=== PATIENT | female | born 1940 | race Caucasian/White ===

== ENCOUNTER 2016-12-08 17:27 | Inpatient (IN) | payer OTHER ==
[~2016-12-08] VITALS: Ht 157.5 cm; Wt 43.5 kg
[2016-12-08] MEDS ORDERED: IV NS 0.9% 1,000 ML ONE ×2 (17:56→21:16)
[2016-12-08] MEDS ORDERED: IV SET PRIMARY PUMP SET 1 EA INFUS.SET MC ONE ×4 (17:56→21:16)
[2016-12-08] MEDS ORDERED: CEFTRIAXONE 1GM BAG (ER ONLY) 50 ML IV ONE ×2 (17:56→18:00)
[2016-12-08] MEDS ORDERED: IV NS 0.9% 1,000 ML BAG IV ONE (18:00)
[2016-12-08] MEDS ORDERED: AZITHROMYCIN 500 MG in IV D5W 250 ML IV ONE (18:00)
[2016-12-08] MEDS ORDERED: PERI1TAB PO (18:05)
[2016-12-08] MEDS ORDERED: IV NS 0.9% 500 ML IV ONE (18:14)
[2016-12-08 18:34] LABS: BASOPHILS % (AUTO) 0.2 % (0.0-2.0); DIFF TOTAL % 100 %; HEMATOCRIT 48 % (33-45); HEMOGLOBIN 15.3 g/dL (11.5-14.8); LYMPHOCYTES # (AUTO) 0.7 /CMM (0.8-4.8); LYMPHOCYTES % (AUTO) 7.3 % (20.0-44.0); MEAN CORPUSCULAR HEMOGLOBIN 29 PG (26.0-33.0); MEAN CORPUSCULAR HGB CONC 32 g/dl (31.0-36.0); MEAN CORPUSCULAR VOLUME 91 fL (82-100); MONOCYTES # (AUTO) 0.7 /CMM (0.1-1.30); MONOCYTES % (AUTO) 7.1 % (2.0-12.0); NEUTROPHILS # (AUTO) 7.9 /CMM (1.8-8.9); NEUTROPHILS % (AUTO) 85.4 % (43.0-81.0); PLATELET COUNT (AUTO) 253 /CMM (150-450); RED BLOOD CELL COUNT(AUTO) 5.29 MIL/uL (4.0-5.2); WHITE BLOOD COUNT (AUTO) 9.3 K/uL (4.3-11.0)
[2016-12-08 18:37] LABS: ALANINE AMINOTRANSFERASE 22 U/L (12-78); ALBUMIN 2.9 g/dL (3.4-5.0); ANION GAP 4 (5-14); ASPARTATE AMINOTRANSFERASE 16 U/L (15-37); BILIRUBIN,DIRECT 0.1 mg/dL (0.0-0.2); BILIRUBIN,TOTAL 0.4 mg/dL (0.2-1.0); CALCIUM, SERUM 8.5 mg/dL (8.5-10.1); CARBON DIOXIDE 38 mmol/L (21-32); CHLORIDE 103 mmol/L (98-107); CREATININE 0.7 mg/dL (0.6-1.3); GLUCOSE 162 mg/dL (74-106); INDIRECT BILIRUBIN 0.3 mg/dL (0.0-1.1); POTASSIUM 3.7 mmol/L (3.5-5.1); SODIUM SERUM 141 mmol/L (136-145); TOTAL PROTEIN, SERUM 6.6 g/dL (6.4-8.2); UREA NITROGEN, BLOOD 22 mg/dL (7-18)
[2016-12-08 18:38] LABS: TROPONIN I < 0.017 ng/mL (0.00-0.056)
[2016-12-08] MEDS ORDERED: Z GUARD REMEDY 2 OZ OINT TP PRN (19:30)
[2016-12-08] MEDS ORDERED: ENOXAPARIN SODIUM 40 MG/0.4 ML DISP.SYRIN SQ SCH (19:30)
[2016-12-08] MEDS ORDERED: ALBUTEROL FS 2.5 MG/0.5 ML VIAL.NEB NEB PRN (19:30)
[2016-12-08] MEDS ORDERED: CEFTRIAXONE 1 G in IV D5W 50 ML IV SCH (19:30)
[2016-12-08] MEDS ORDERED: HYDROCODONE/APAP 5/325MG 1 EACH TABLET PO PRN (19:30)
[2016-12-08 20:00] VITALS: BP 121/63
[2016-12-08] MEDS ORDERED: ONDANSETRON HCL/PF 4 MG/2 ML VIAL IVP PRN (20:00)
[2016-12-08] MEDS ORDERED: MAGNESIUM HYDROXIDE 30 ML UDC PO PRN (20:00)
[2016-12-08] MEDS ORDERED: ACETAMINOPHEN 325 MG TABLET PO PRN (20:00)
[2016-12-08] MEDS ORDERED: LORAZEPAM 1 MG TABLET PO PRN (20:00)
[2016-12-08] MEDS ORDERED: MAG HYDROX/AL HYDROX/SIMETH 30 ML UDC PO PRN (20:00)
[2016-12-08 21:00] VITALS: BP 121/63
[2016-12-08] MEDS ORDERED: ENOXAPARIN SODIUM 40 MG/0.4 ML DISP.SYRIN SQ ONE (21:15)
[2016-12-08] MEDS ORDERED: methylPREDNISolone SOD SUCC 125 MG/2ML VIAL ONE (21:16)
[2016-12-08] MEDS: methylPREDNISolone SOD SUCC 125 MG/2ML VIAL IV SCH (21:27)
[2016-12-08] MEDS: IV NS 0.9% 1,000 ML IV PRN (21:28)
[2016-12-08] MEDS ORDERED: ALBUTEROL FS 2.5 MG/3 ML VIAL.NEB ONE (21:59)
[2016-12-08] MEDS ORDERED: ZOLPIDEM TARTRATE 5 MG TABLET PO PRN (22:00)
[2016-12-08] MEDS ORDERED: IPRATROPIUM NEB FS 0.5 MG/2.5 ML AMPUL.NEB ONE (22:00)
[2016-12-08] MEDS ORDERED: ALBUTEROL FS 2.5 MG/0.5 ML VIAL.NEB ONE (22:00)
[2016-12-09] VITALS (36 sets, daily range): BP systolic 86–142; BP diastolic 48–81
[2016-12-09] MEDS ORDERED: hydrALAZINE HCL 10 MG TABLET PO PRN (01:30)
[2016-12-09] MEDS ORDERED: NICOTINE PATCH (21MG) 21 MG PATCH.TD24 TD ONE (01:35)
[2016-12-09] MEDS: NICOTINE PATCH (21MG) 21 MG PATCH.TD24 TD SCH ×2 (01:38→10:37)
[2016-12-09 02:45] LABS: ABG BASE EXCESS 4.5 mmol/L; ABG HCO3 35.2 mmol/L; ABG PCO2 82.8 mmHg (35.0-45.0); ABG PH 7.246 (7.350-7.450); ABG PO2 78.9 mmHg (75.0-100.0); ABG TOTAL HEMOGLOBIN 15.5 G/dL (12.0-16.0); ALLEN TEST Pass; AaDO2 81.7 mmHg; O2Hb 90.6 % (94.0-97.0)
[2016-12-09 04:58] LABS: DIFF TOTAL % 100 %; HEMATOCRIT 45 % (33-45); HEMOGLOBIN 14.4 g/dL (11.5-14.8); LYMPHOCYTES # (AUTO) 0.2 /CMM (0.8-4.8); MEAN CORPUSCULAR HEMOGLOBIN 29 PG (26.0-33.0); MEAN CORPUSCULAR HGB CONC 32 g/dl (31.0-36.0); MEAN CORPUSCULAR VOLUME 92 fL (82-100); MONOCYTES % (AUTO) 0.7 % (2.0-12.0); NEUTROPHILS # (AUTO) 4.7 /CMM (1.8-8.9); NEUTROPHILS % (AUTO) 95.3 % (43.0-81.0); PLATELET COUNT (AUTO) 226 /CMM (150-450); RED BLOOD CELL COUNT(AUTO) 4.89 MIL/uL (4.0-5.2); WHITE BLOOD COUNT (AUTO) 4.9 K/uL (4.3-11.0)
[2016-12-09 05:03] LABS: CALCIUM, SERUM 7.9 mg/dL (8.5-10.1); CREATININE 0.6 mg/dL (0.6-1.3); PHOSPHORUS 4.1 mg/dL (2.5-4.9); POTASSIUM 4.3 mmol/L (3.5-5.1)
[2016-12-09 05:08] LABS: ABG BASE EXCESS 6.5 mmol/L; ABG HCO3 36.3 mmol/L; ABG PCO2 78.4 mmHg (35.0-45.0); ABG PH 7.283 (7.350-7.450); ABG TOTAL HEMOGLOBIN 14.4 G/dL (12.0-16.0); ALLEN TEST Pass; AaDO2 196.3 mmHg; O2Hb 90.3 % (94.0-97.0)
[2016-12-09] MEDS ORDERED: ALBUTEROL FS 2.5 MG/0.5 ML VIAL.NEB NEB PRN (07:05)
[2016-12-09] MEDS ORDERED: AZITHROMYCIN 500 MG in IV D5W 250 ML IV SCH (09:00)
[2016-12-09] MEDS: IV NS 0.9% 1,000 ML IV PRN (10:36)
[2016-12-09] MEDS: methylPREDNISolone SOD SUCC 125 MG/2ML VIAL IV SCH ×4 (10:36→21:53)
[2016-12-09] MEDS: PANTOPRAZOLE 40 MG TABLET.DR PO SCH (10:37)
[2016-12-09] MEDS: FLUTICASONE/SALMETEROL DISKUS IH SCH ×2 (10:37→21:54)
[2016-12-09] MEDS ORDERED: SECONDARY IV SET 1 EA INFUS.SET MC ONE ×2 (11:23→17:29)
[2016-12-09] MEDS: Magnesium 1GM/D5W 100ML PREMIX 100 ML IV SCH ×2 (11:26→13:08)
[2016-12-09 16:20] LABS: ABG BASE EXCESS 7.6 mmol/L; ABG HCO3 35.3 mmol/L; ABG NOTIFIED BY AS RRT.; ABG PCO2 62.4 mmHg (35.0-45.0); ABG PO2 67.8 mmHg (75.0-100.0); ABG TOTAL HEMOGLOBIN 14.7 G/dL (12.0-16.0); AaDO2 145.6 mmHg; O2Hb 90.9 % (94.0-97.0)
[2016-12-09] MEDS: CEFTRIAXONE 1 G in IV D5W 50 ML IV SCH (17:07)
[2016-12-09] MEDS: AZITHROMYCIN 500 MG in IV D5W 250 ML IV SCH (17:35)
[2016-12-09] MEDS: ENOXAPARIN SODIUM 40 MG/0.4 ML DISP.SYRIN SQ SCH (21:50)
[2016-12-10] VITALS (27 sets, daily range): BP systolic 66–152; BP diastolic 20–78
[2016-12-10] MEDS: IV NS 0.9% 1,000 ML IV PRN ×2 (02:08→15:23)
[2016-12-10 04:45] LABS: DIFF TOTAL % 100 %; HEMATOCRIT 49 % (33-45); HEMOGLOBIN 15.5 g/dL (11.5-14.8); LYMPHOCYTES # (AUTO) 0.4 /CMM (0.8-4.8); MEAN CORPUSCULAR HEMOGLOBIN 29 PG (26.0-33.0); MEAN CORPUSCULAR HGB CONC 32 g/dl (31.0-36.0); MEAN CORPUSCULAR VOLUME 93 fL (82-100); MONOCYTES # (AUTO) 0.2 /CMM (0.1-1.30); MONOCYTES % (AUTO) 2.3 % (2.0-12.0); NEUTROPHILS # (AUTO) 7.1 /CMM (1.8-8.9); NEUTROPHILS % (AUTO) 92.7 % (43.0-81.0); PLATELET COUNT (AUTO) 275 /CMM (150-450); RED BLOOD CELL COUNT(AUTO) 5.28 MIL/uL (4.0-5.2); WHITE BLOOD COUNT (AUTO) 7.6 K/uL (4.3-11.0)
[2016-12-10 05:09] LABS: CALCIUM, SERUM 8.5 mg/dL (8.5-10.1); CREATININE 0.6 mg/dL (0.6-1.3); POTASSIUM 4.4 mmol/L (3.5-5.1)
[2016-12-10] MEDS: PANTOPRAZOLE 40 MG TABLET.DR PO SCH (07:55)
[2016-12-10] MEDS: NICOTINE PATCH (21MG) 21 MG PATCH.TD24 TD SCH (09:57)
[2016-12-10] MEDS: AMLODIPINE PO SCH (09:57)
[2016-12-10] MEDS: PERINDOPRIL PO SCH (09:57)
[2016-12-10] MEDS: FLUTICASONE/SALMETEROL DISKUS IH SCH (09:57)
[2016-12-10] MEDS: methylPREDNISolone SOD SUCC 125 MG/2ML VIAL IV SCH ×2 (09:59→20:16)
[2016-12-10] MEDS: ACETYLCYSTEINE 20% SOLN 800 MG/4 ML VIAL NEB SCH ×3 (12:30→23:30)
[2016-12-10 12:33] LABS: ABG BASE EXCESS 4.9 mmol/L; ABG HCO3 33.7 mmol/L; ABG NOTIFIED WHOM ED RN; ABG PCO2 67.6 mmHg (35.0-45.0); ABG PH 7.315 (7.350-7.450); ABG PO2 52.7 mmHg (75.0-100.0); ABG TOTAL HEMOGLOBIN 15.7 G/dL (12.0-16.0); ALLEN TEST Pass; AaDO2 125.6 mmHg; O2Hb 82.3 % (94.0-97.0)
[2016-12-10] MEDS: CEFTRIAXONE 1 G in IV D5W 50 ML IV SCH (17:06)
[2016-12-10] MEDS: LACTOBACILLUS RHAMNOSUS GG 1 EACH CAP.SPRINK PO SCH (17:06)
[2016-12-10] MEDS: AZITHROMYCIN 500 MG in IV D5W 250 ML IV SCH (17:07)
[2016-12-10] MEDS: IPRATROPIUM NEB FS 0.5 MG/2.5 ML AMPUL.NEB NEB SCH ×3 (17:30→23:30)
[2016-12-10] MEDS: ALBUTEROL FS 2.5 MG/0.5 ML VIAL.NEB NEB SCH ×2 (20:15→23:30)
[2016-12-10] MEDS: ENOXAPARIN SODIUM 40 MG/0.4 ML DISP.SYRIN SQ SCH (20:16)
[2016-12-11] VITALS (14 sets, daily range): BP systolic 120–158; BP diastolic 62–94
[2016-12-11] MEDS: IV NS 0.9% 1,000 ML IV PRN ×2 (02:34→17:03)
[2016-12-11] MEDS: IPRATROPIUM NEB FS 0.5 MG/2.5 ML AMPUL.NEB NEB SCH ×6 (03:30→23:28)
[2016-12-11] MEDS: ALBUTEROL FS 2.5 MG/0.5 ML VIAL.NEB NEB SCH ×6 (03:30→23:28)
[2016-12-11 04:55] LABS: DIFF TOTAL % 100 %; EOSINOPHILS % (AUTO) 0.1 % (0.0-6.0); HEMATOCRIT 42 % (33-45); HEMOGLOBIN 14.1 g/dL (11.5-14.8); LYMPHOCYTES # (AUTO) 0.8 /CMM (0.8-4.8); LYMPHOCYTES % (AUTO) 9.7 % (20.0-44.0); MEAN CORPUSCULAR HEMOGLOBIN 30 PG (26.0-33.0); MEAN CORPUSCULAR HGB CONC 34 g/dl (31.0-36.0); MEAN CORPUSCULAR VOLUME 89 fL (82-100); MONOCYTES # (AUTO) 0.4 /CMM (0.1-1.30); MONOCYTES % (AUTO) 4.3 % (2.0-12.0); NEUTROPHILS # (AUTO) 7.1 /CMM (1.8-8.9); NEUTROPHILS % (AUTO) 85.9 % (43.0-81.0); PLATELET COUNT (AUTO) 284 /CMM (150-450); WHITE BLOOD COUNT (AUTO) 8.3 K/uL (4.3-11.0)
[2016-12-11 05:34] LABS: CALCIUM, SERUM 8.1 mg/dL (8.5-10.1); CREATININE 0.5 mg/dL (0.6-1.3); PHOSPHORUS 3.5 mg/dL (2.5-4.9); POTASSIUM 4.3 mmol/L (3.5-5.1)
[2016-12-11] MEDS: methylPREDNISolone SOD SUCC 125 MG/2ML VIAL IV SCH ×3 (05:57→21:49)
[2016-12-11] MEDS: ACETYLCYSTEINE 20% SOLN 800 MG/4 ML VIAL NEB SCH ×3 (08:06→23:28)
[2016-12-11] MEDS: PANTOPRAZOLE 40 MG TABLET.DR PO SCH (08:18)
[2016-12-11] MEDS: NICOTINE PATCH (21MG) 21 MG PATCH.TD24 TD SCH (08:18)
[2016-12-11] MEDS: LACTOBACILLUS RHAMNOSUS GG 1 EACH CAP.SPRINK PO SCH ×2 (08:18→16:55)
[2016-12-11] MEDS: AMLODIPINE PO SCH (08:18)
[2016-12-11] MEDS: PERINDOPRIL PO SCH (08:18)
[2016-12-11] MEDS ORDERED: SECONDARY IV SET 1 EA INFUS.SET MC ONE (16:44)
[2016-12-11] MEDS: CEFTRIAXONE 1 G in IV D5W 50 ML IV SCH (16:55)
[2016-12-11] MEDS: AZITHROMYCIN 500 MG in IV D5W 250 ML IV SCH (17:42)
[2016-12-11] MEDS: ENOXAPARIN SODIUM 40 MG/0.4 ML DISP.SYRIN SQ SCH (21:58)
[2016-12-12] VITALS: BP 129/65
[2016-12-12] MEDS: IPRATROPIUM NEB FS 0.5 MG/2.5 ML AMPUL.NEB NEB SCH ×6 (03:28→23:15)
[2016-12-12] MEDS: ALBUTEROL FS 2.5 MG/0.5 ML VIAL.NEB NEB SCH ×6 (03:29→23:15)
[2016-12-12 04:00] VITALS: BP 146/70
[2016-12-12] MEDS: methylPREDNISolone SOD SUCC 125 MG/2ML VIAL IV SCH ×3 (06:07→21:09)
[2016-12-12] MEDS: IV NS 0.9% 1,000 ML IV PRN ×2 (06:07→21:09)
[2016-12-12 07:27] LABS: DIFF TOTAL % 100 %; HEMATOCRIT 44 % (33-45); HEMOGLOBIN 14.2 g/dL (11.5-14.8); LYMPHOCYTES # (AUTO) 0.2 /CMM (0.8-4.8); LYMPHOCYTES % (AUTO) 3.5 % (20.0-44.0); MEAN CORPUSCULAR HEMOGLOBIN 30 PG (26.0-33.0); MEAN CORPUSCULAR HGB CONC 32 g/dl (31.0-36.0); MEAN CORPUSCULAR VOLUME 92 fL (82-100); MONOCYTES # (AUTO) 0.2 /CMM (0.1-1.30); MONOCYTES % (AUTO) 3.1 % (2.0-12.0); NEUTROPHILS # (AUTO) 6.1 /CMM (1.8-8.9); NEUTROPHILS % (AUTO) 93.4 % (43.0-81.0); PLATELET COUNT (AUTO) 265 /CMM (150-450); RED BLOOD CELL COUNT(AUTO) 4.81 MIL/uL (4.0-5.2); WHITE BLOOD COUNT (AUTO) 6.5 K/uL (4.3-11.0)
[2016-12-12 08:00] VITALS: BP 157/73
[2016-12-12 08:10] LABS: CALCIUM, SERUM 8.1 mg/dL (8.5-10.1); CREATININE 0.4 mg/dL (0.6-1.3); POTASSIUM 4.1 mmol/L (3.5-5.1)
[2016-12-12] MEDS: ACETYLCYSTEINE 20% SOLN 800 MG/4 ML VIAL NEB SCH ×2 (08:12→23:15)
[2016-12-12] MEDS: PERINDOPRIL PO SCH (08:37)
[2016-12-12] MEDS: AMLODIPINE PO SCH (08:37)
[2016-12-12] MEDS: NICOTINE PATCH (21MG) 21 MG PATCH.TD24 TD SCH (08:37)
[2016-12-12] MEDS: PANTOPRAZOLE 40 MG TABLET.DR PO SCH (08:37)
[2016-12-12] MEDS: LACTOBACILLUS RHAMNOSUS GG 1 EACH CAP.SPRINK PO SCH ×2 (08:37→17:31)
[2016-12-12 12:00] VITALS: BP 148/76
[2016-12-12 16:00] VITALS: BP 132/74
[2016-12-12] MEDS: CEFTRIAXONE 1 G in IV D5W 50 ML IV SCH (17:31)
[2016-12-12] MEDS: AZITHROMYCIN 500 MG in IV D5W 250 ML IV SCH (18:20)
[2016-12-12 20:00] VITALS: BP 144/73
[2016-12-12] MEDS: ENOXAPARIN SODIUM 40 MG/0.4 ML DISP.SYRIN SQ SCH (21:09)
[2016-12-13] VITALS: BP 185/98
[2016-12-13 04:00] VITALS: BP 144/70
[2016-12-13] MEDS: IPRATROPIUM NEB FS 0.5 MG/2.5 ML AMPUL.NEB NEB SCH ×5 (04:19→19:06)
[2016-12-13] MEDS: ALBUTEROL FS 2.5 MG/0.5 ML VIAL.NEB NEB SCH ×5 (04:19→19:07)
[2016-12-13] MEDS: methylPREDNISolone SOD SUCC 125 MG/2ML VIAL IV SCH ×3 (05:18→20:45)
[2016-12-13] MEDS: ACETYLCYSTEINE 20% SOLN 800 MG/4 ML VIAL NEB SCH ×2 (07:41→15:47)
[2016-12-13 07:48] LABS: CALCIUM, SERUM 8.3 mg/dL (8.5-10.1); CREATININE 0.3 mg/dL (0.6-1.3)
[2016-12-13 08:00] VITALS: BP 156/74
[2016-12-13] MEDS: AMLODIPINE PO SCH (08:05)
[2016-12-13] MEDS: PERINDOPRIL PO SCH (08:05)
[2016-12-13] MEDS: PANTOPRAZOLE 40 MG TABLET.DR PO SCH (08:05)
[2016-12-13] MEDS: LACTOBACILLUS RHAMNOSUS GG 1 EACH CAP.SPRINK PO SCH ×2 (08:05→17:04)
[2016-12-13] MEDS: NICOTINE PATCH (21MG) 21 MG PATCH.TD24 TD SCH (08:05)
[2016-12-13 12:00] VITALS: BP 153/80
[2016-12-13 16:00] VITALS: BP 151/81
[2016-12-13] MEDS: CEFTRIAXONE 1 G in IV D5W 50 ML IV SCH (17:04)
[2016-12-13] MEDS: AZITHROMYCIN 250 MG TABLET PO SCH (17:04)
[2016-12-13 17:19] LABS: ABG BASE EXCESS 14.3 mmol/L; ABG HCO3 43.1 mmol/L; ABG PCO2 70.8 mmHg (35.0-45.0); ABG PH 7.402 (7.350-7.450); ABG PO2 66.7 mmHg (75.0-100.0); ABG TOTAL HEMOGLOBIN 15.8 G/dL (12.0-16.0); ALLEN TEST Pass; AaDO2 137.1 mmHg; O2Hb 91.8 % (94.0-97.0)
[2016-12-13 20:00] VITALS: BP 153/79
[2016-12-13] MEDS: ENOXAPARIN SODIUM 40 MG/0.4 ML DISP.SYRIN SQ SCH (20:46)
[2016-12-14] VITALS (7 sets, daily range): BP systolic 108–160; BP diastolic 68–97
[2016-12-14] MEDS: ACETYLCYSTEINE 20% SOLN 800 MG/4 ML VIAL NEB SCH ×4 (00:11→23:39)
[2016-12-14] MEDS: ALBUTEROL FS 2.5 MG/0.5 ML VIAL.NEB NEB SCH ×7 (00:11→23:39)
[2016-12-14] MEDS: IPRATROPIUM NEB FS 0.5 MG/2.5 ML AMPUL.NEB NEB SCH ×7 (00:12→23:39)
[2016-12-14] MEDS: methylPREDNISolone SOD SUCC 125 MG/2ML VIAL IV SCH ×3 (04:57→20:43)
[2016-12-14 07:45] LABS: CALCIUM, SERUM 8.5 mg/dL (8.5-10.1); CREATININE 0.4 mg/dL (0.6-1.3); POTASSIUM 4.1 mmol/L (3.5-5.1)
[2016-12-14] MEDS: LACTOBACILLUS RHAMNOSUS GG 1 EACH CAP.SPRINK PO SCH ×2 (09:54→18:29)
[2016-12-14] MEDS: AMLODIPINE PO SCH (09:55)
[2016-12-14] MEDS: PANTOPRAZOLE 40 MG TABLET.DR PO SCH (09:55)
[2016-12-14] MEDS: PERINDOPRIL PO SCH (09:55)
[2016-12-14] MEDS: NICOTINE PATCH (21MG) 21 MG PATCH.TD24 TD SCH (09:55)
[2016-12-14] MEDS: acetaZOLAMIDE SODIUM 500 MG/VIAL VIAL IV SCH ×2 (10:46→20:43)
[2016-12-14] MEDS: CEFTRIAXONE 1 G in IV D5W 50 ML IV SCH (18:29)
[2016-12-14] MEDS: AZITHROMYCIN 250 MG TABLET PO SCH (18:29)
[2016-12-14] MEDS: ENOXAPARIN SODIUM 40 MG/0.4 ML DISP.SYRIN SQ SCH (20:44)
[2016-12-15] VITALS: BP 138/74
[2016-12-15] MEDS: ALBUTEROL FS 2.5 MG/0.5 ML VIAL.NEB NEB SCH ×6 (03:30→23:55)
[2016-12-15] MEDS: IPRATROPIUM NEB FS 0.5 MG/2.5 ML AMPUL.NEB NEB SCH ×6 (03:30→23:55)
[2016-12-15 04:00] VITALS: BP 124/78
[2016-12-15] MEDS: methylPREDNISolone SOD SUCC 125 MG/2ML VIAL IV SCH ×3 (04:51→21:22)
[2016-12-15] MEDS: ACETYLCYSTEINE 20% SOLN 800 MG/4 ML VIAL NEB SCH ×3 (07:30→23:55)
[2016-12-15 08:00] VITALS: BP 132/75
[2016-12-15 08:01] LABS: CREATININE 0.6 mg/dL (0.6-1.3); POTASSIUM 3.7 mmol/L (3.5-5.1)
[2016-12-15] MEDS: PANTOPRAZOLE 40 MG TABLET.DR PO SCH (08:26)
[2016-12-15] MEDS: LACTOBACILLUS RHAMNOSUS GG 1 EACH CAP.SPRINK PO SCH ×2 (08:26→17:09)
[2016-12-15] MEDS: NICOTINE PATCH (21MG) 21 MG PATCH.TD24 TD SCH (08:26)
[2016-12-15] MEDS: PERINDOPRIL PO SCH (08:31)
[2016-12-15] MEDS: AMLODIPINE PO SCH (08:31)
[2016-12-15] MEDS: acetaZOLAMIDE SODIUM 500 MG/VIAL VIAL IV SCH (09:16)
[2016-12-15 12:00] VITALS: BP 131/70
[2016-12-15 13:27] LABS: ABG BASE EXCESS 10.9 mmol/L; ABG HCO3 38.2 mmol/L; ABG PCO2 58.6 mmHg (35.0-45.0); ABG PH 7.432 (7.350-7.450); ABG PO2 46.7 mmHg (75.0-100.0); ABG TOTAL HEMOGLOBIN 17.5 G/dL (12.0-16.0); ALLEN TEST Pass; AaDO2 112.9 mmHg
[2016-12-15 16:00] VITALS: BP 160/90
[2016-12-15] MEDS: AZITHROMYCIN 250 MG TABLET PO SCH (17:10)
[2016-12-15] MEDS: CEFTRIAXONE 1 G in IV D5W 50 ML IV SCH (17:10)
[2016-12-15 20:00] VITALS: BP_SYST 122; BP_SYST 136; BP_DIAS 73; BP_DIAS 77
[2016-12-15] MEDS: ENOXAPARIN SODIUM 40 MG/0.4 ML DISP.SYRIN SQ SCH (20:37)
[2016-12-16] VITALS: BP_SYST 129; BP_SYST 141; BP_DIAS 73; BP_DIAS 76
[2016-12-16] MEDS: IPRATROPIUM NEB FS 0.5 MG/2.5 ML AMPUL.NEB NEB SCH ×6 (03:12→23:16)
[2016-12-16] MEDS: ALBUTEROL FS 2.5 MG/0.5 ML VIAL.NEB NEB SCH ×6 (03:13→23:16)
[2016-12-16 04:00] VITALS: BP_SYST 141; BP_DIAS 74; BP_DIAS 79
[2016-12-16] MEDS: methylPREDNISolone SOD SUCC 125 MG/2ML VIAL IV SCH ×3 (04:48→21:17)
[2016-12-16 08:00] VITALS: BP 147/95
[2016-12-16] MEDS: NICOTINE PATCH (21MG) 21 MG PATCH.TD24 TD SCH (08:07)
[2016-12-16] MEDS: PERINDOPRIL PO SCH (08:08)
[2016-12-16] MEDS: LACTOBACILLUS RHAMNOSUS GG 1 EACH CAP.SPRINK PO SCH ×2 (08:08→16:35)
[2016-12-16] MEDS: AMLODIPINE PO SCH (08:08)
[2016-12-16] MEDS: PANTOPRAZOLE 40 MG TABLET.DR PO SCH (08:15)
[2016-12-16] MEDS: ACETYLCYSTEINE 20% SOLN 800 MG/4 ML VIAL NEB SCH ×3 (08:44→23:16)
[2016-12-16 16:00] VITALS: BP 137/75
[2016-12-16] MEDS: CEFTRIAXONE 1 G in IV D5W 50 ML IV SCH (16:59)
[2016-12-16] MEDS: AZITHROMYCIN 250 MG TABLET PO SCH (18:10)
[2016-12-16 20:00] VITALS: BP 136/70
[2016-12-16] MEDS: ENOXAPARIN SODIUM 40 MG/0.4 ML DISP.SYRIN SQ SCH (21:19)
[2016-12-17] MEDS: ALBUTEROL FS 2.5 MG/0.5 ML VIAL.NEB NEB SCH ×6 (03:15→22:56)
[2016-12-17] MEDS: IPRATROPIUM NEB FS 0.5 MG/2.5 ML AMPUL.NEB NEB SCH ×6 (03:15→22:55)
[2016-12-17 04:00] VITALS: BP 140/65
[2016-12-17] MEDS: methylPREDNISolone SOD SUCC 125 MG/2ML VIAL IV SCH ×3 (04:16→21:57)
[2016-12-17 06:52] LABS: BASOPHILS % (AUTO) 0.1 % (0.0-2.0); DIFF TOTAL % 100 %; EOSINOPHILS % (AUTO) 0.6 % (0.0-6.0); HEMATOCRIT 53 % (33-45); HEMOGLOBIN 17.3 g/dL (11.5-14.8); LYMPHOCYTES # (AUTO) 0.2 /CMM (0.8-4.8); LYMPHOCYTES % (AUTO) 2.6 % (20.0-44.0); MEAN CORPUSCULAR HEMOGLOBIN 30 PG (26.0-33.0); MEAN CORPUSCULAR HGB CONC 33 g/dl (31.0-36.0); MEAN CORPUSCULAR VOLUME 91 fL (82-100); MONOCYTES # (AUTO) 0.1 /CMM (0.1-1.30); MONOCYTES % (AUTO) 2.4 % (2.0-12.0); NEUTROPHILS # (AUTO) 5.7 /CMM (1.8-8.9); NEUTROPHILS % (AUTO) 94.3 % (43.0-81.0); PLATELET COUNT (AUTO) 241 /CMM (150-450); RED BLOOD CELL COUNT(AUTO) 5.85 MIL/uL (4.0-5.2); WHITE BLOOD COUNT (AUTO) 6.1 K/uL (4.3-11.0)
[2016-12-17] MEDS: PANTOPRAZOLE 40 MG TABLET.DR PO SCH (06:56)
[2016-12-17 07:09] LABS: CALCIUM, SERUM 8.7 mg/dL (8.5-10.1); CREATININE 0.6 mg/dL (0.6-1.3)
[2016-12-17] MEDS: ACETYLCYSTEINE 20% SOLN 800 MG/4 ML VIAL NEB SCH ×3 (07:22→22:56)
[2016-12-17 08:00] VITALS: BP 165/88
[2016-12-17] MEDS: LACTOBACILLUS RHAMNOSUS GG 1 EACH CAP.SPRINK PO SCH ×2 (08:32→18:26)
[2016-12-17] MEDS: PERINDOPRIL PO SCH (08:32)
[2016-12-17] MEDS: AMLODIPINE PO SCH (08:32)
[2016-12-17] MEDS: NICOTINE PATCH (21MG) 21 MG PATCH.TD24 TD SCH (08:33)
[2016-12-17 09:28] LABS: ABG BASE EXCESS 8.5 mmol/L; ABG HCO3 35.5 mmol/L; ABG PCO2 56.3 mmHg (35.0-45.0); ABG PH 7.418 (7.350-7.450); ABG PO2 52.3 mmHg (75.0-100.0); ABG TOTAL HEMOGLOBIN 17.7 G/dL (12.0-16.0); ALLEN TEST Pass; O2Hb 84.9 % (94.0-97.0)
[2016-12-17 16:00] VITALS: BP 144/74
[2016-12-17] MEDS ORDERED: NICO1PAT28 TD (17:13)
[2016-12-17] MEDS ORDERED: FLUT1DIS5 INH (17:13)
[2016-12-17] MEDS ORDERED: ALBU2.5V13 NEB (17:13)
[2016-12-17] MEDS ORDERED: PRED20TA PO (17:13)
[2016-12-17] MEDS ORDERED: Ipratropium Bromide NEB (17:13)
[2016-12-17] MEDS: CEFTRIAXONE 1 G in IV D5W 50 ML IV SCH (18:26)
[2016-12-17] MEDS: AZITHROMYCIN 250 MG TABLET PO SCH (18:27)
[2016-12-17 20:00] VITALS: BP 136/71
[2016-12-17] MEDS: ENOXAPARIN SODIUM 40 MG/0.4 ML DISP.SYRIN SQ SCH (21:58)
[2016-12-18] MEDS: IPRATROPIUM NEB FS 0.5 MG/2.5 ML AMPUL.NEB NEB SCH ×6 (02:53→23:12)
[2016-12-18] MEDS: ALBUTEROL FS 2.5 MG/0.5 ML VIAL.NEB NEB SCH ×6 (02:53→23:12)
[2016-12-18 04:00] VITALS: BP 131/64
[2016-12-18 04:17] VITALS: BP 131/64
[2016-12-18] MEDS: methylPREDNISolone SOD SUCC 125 MG/2ML VIAL IV SCH ×3 (04:41→21:01)
[2016-12-18] MEDS: ACETYLCYSTEINE 20% SOLN 800 MG/4 ML VIAL NEB SCH ×2 (07:35→23:12)
[2016-12-18] MEDS: LACTOBACILLUS RHAMNOSUS GG 1 EACH CAP.SPRINK PO SCH ×2 (08:59→17:32)
[2016-12-18] MEDS: AMLODIPINE PO SCH (08:59)
[2016-12-18] MEDS: PANTOPRAZOLE 40 MG TABLET.DR PO SCH (08:59)
[2016-12-18] MEDS: PERINDOPRIL PO SCH (08:59)
[2016-12-18] MEDS: NICOTINE PATCH (21MG) 21 MG PATCH.TD24 TD SCH (08:59)
[2016-12-18 16:00] VITALS: BP 153/80
[2016-12-18] MEDS: AZITHROMYCIN 250 MG TABLET PO SCH (17:32)
[2016-12-18] MEDS: CEFTRIAXONE 1 G in IV D5W 50 ML IV SCH (17:32)
[2016-12-18 20:00] VITALS: BP 148/82
[2016-12-18] MEDS: ENOXAPARIN SODIUM 40 MG/0.4 ML DISP.SYRIN SQ SCH (21:01)
[2016-12-19] MEDS: ALBUTEROL FS 2.5 MG/0.5 ML VIAL.NEB NEB SCH ×4 (03:30→15:18)
[2016-12-19] MEDS: IPRATROPIUM NEB FS 0.5 MG/2.5 ML AMPUL.NEB NEB SCH ×4 (03:30→15:18)
[2016-12-19 04:00] VITALS: BP 150/78
[2016-12-19] MEDS: methylPREDNISolone SOD SUCC 125 MG/2ML VIAL IV SCH ×2 (05:07→12:08)
[2016-12-19] MEDS: ACETYLCYSTEINE 20% SOLN 800 MG/4 ML VIAL NEB SCH ×2 (07:10→15:18)
[2016-12-19] MEDS: LACTOBACILLUS RHAMNOSUS GG 1 EACH CAP.SPRINK PO SCH ×2 (08:58→17:08)
[2016-12-19] MEDS: NICOTINE PATCH (21MG) 21 MG PATCH.TD24 TD SCH (08:59)
[2016-12-19] MEDS: AMLODIPINE PO SCH (08:59)
[2016-12-19] MEDS: PERINDOPRIL PO SCH (08:59)
[2016-12-19] MEDS: PANTOPRAZOLE 40 MG TABLET.DR PO SCH (08:59)
[2016-12-19 12:00] VITALS: BP 152/82
[2016-12-19] MEDS: CEFTRIAXONE 1 G in IV D5W 50 ML IV SCH (17:08)
[2016-12-19] MEDS: AZITHROMYCIN 250 MG TABLET PO SCH (17:09)
== END 2016-12-19 19:45 | disposition home health service (06) | DRG 177 ==
LOC: ER 17:29 → TELE-TD 17:55 → ICU 12-09 03:01 → TELE-TD 12-11 11:40 → TELE1 12-12 10:21 → MEDSG1 12-16 09:54
PROVIDERS: ADMIT Internal Medicine; ATTEND Internal Medicine
PROC: 05H633Z Insertion of Infusion Device into Left Subclavian Vein, Percutaneous Approach (ICD-10-PCS; principal; 2016-12-09)
PROC: 5A09357 Assistance with Respiratory Ventilation, Less than 24 Consecutive Hours, Continuous Positive Airway Pressure (ICD-10-PCS; 2016-12-09)
DX: J15.6 Pneumonia due to other Gram-negative bacteria (principal); J96.01 Acute respiratory failure with hypoxia; E43 Unspecified severe protein-calorie malnutrition; J96.02 Acute respiratory failure with hypercapnia; J44.1 Chronic obstructive pulmonary disease with (acute) exacerbation; Z68.1 Body mass index [BMI] 19.9 or less, adult; J90 Pleural effusion, not elsewhere classified; I69.854 Hemiplegia and hemiparesis following other cerebrovascular disease affecting left non-dominant side; E83.42 Hypomagnesemia; E86.0 Dehydration; F17.210 Nicotine dependence, cigarettes, uncomplicated; I10 Essential (primary) hypertension; I27.2 Other secondary pulmonary hypertension; K21.9 Gastro-esophageal reflux disease without esophagitis; E88.09 Other disorders of plasma-protein metabolism, not elsewhere classified; I70.0 Atherosclerosis of aorta; I34.0 Nonrheumatic mitral (valve) insufficiency
CPT/HCPCS: 36415; 36600; 71010-TC; 80048-TC; 80061-TC; 80076-TC; 82803-TC; 83605-TC; 83735-TC; 83880; 84100-TC; 84484-TC; 85025-TC; 87040-TC; 87070-TC; 87081-TC; 87400; 93307-TC; 94799-TC; A4606; J0456; J0696; J1120; J1650; J2930; J3475; J7030; J7040; J7060; Z7610